=== PATIENT | female | born 1990 | race Hispanic/Latino ===

== ENCOUNTER 2019-09-21 07:59 | Outpatient (CLI) | payer MEDICAID ==
--- NOTE | 2019-09-21 09:02 | ULT ---
RIGHT BREAST ULTRASOUND: COMPARISON: None. HISTORY: Right retroareolar breast pain. TECHNIQUE: Multiplanar, saleh scale, and color Doppler images were obtained in a right breast ultrasound. FINDINGS: Normal-appearing breast parenchyma is seen at the area of pain. No mass or shadowing is seen. IMPRESSION: BIRADS category 1 - negative. Annual screening mammography is recommended at the age of 40. POS: [facility]
== END 2019-09-21 08:00 | disposition home or self-care (01) ==
LOC: BICULT 07:59
PROVIDERS: ATTEND Nurse Practitioner Women's Health
DX: N64.4 Mastodynia (principal)